=== PATIENT | male | born 1980 | race Hispanic/Latino ===

== ENCOUNTER → 2019-02-20 | Outpatient (CLI) | payer OTHER ==
--- NOTE | 2019-02-20 10:17 | REP ---
Left ankle four views : There is no fracture or dislocation. Mineralization and joint spaces are normal. There are no calcifications or foreign bodies. Impression: Negative left ankle . Electronically Signed by Pollo Julio MD 02/20/2019 10:09 A
== END ==
LOC: M RAD 08:24
PROVIDERS: ATTEND Surgery
DX: M25.572 Pain in left ankle and joints of left foot (principal)